=== PATIENT | male | born 1945 | race Caucasian/White ===

== ENCOUNTER 2018-01-16 21:21 | Inpatient (IN) | payer MEDICARE, OTHER ==
[~2018-01-16] VITALS: Ht 175.3 cm; Wt 127.3 kg
[2018-01-16] MEDS ORDERED: albuterol 2.5 MG/3 ML nebule CONTNEB PRN (22:05)
[2018-01-16 22:15] LABS: BASOPHILS # (AUTO) 0.1 X10'3 (0-0.2); BASOPHILS % (AUTO) 0.4 % (0-1); EOSINOPHILS # (AUTO) 0.4 X10'3 (0-0.9); EOSINOPHILS % (AUTO) 2.6 % (0-6); LYMPHOCYTES # (AUTO) 2.4 X10'3 (1.1-4.8); LYMPHOCYTES % (AUTO) 14.7 % (21-51); MEAN CORPUSCULAR HEMOGLOBIN 31.6 PG (27.0-31.0); MEAN CORPUSCULAR HGB CONC 34.2 % (33.0-36.5); MEAN CORPUSCULAR VOLUME 92.5 FL (78-98); MEAN PLATELET VOLUME 8.9 FL (7.4-10.4); MONOCYTES # (AUTO) 1.4 X10'3 (0-0.9); MONOCYTES % (AUTO) 8.6 % (2-12); NEUTROPHILS # (AUTO) 12.1 X10'3 (1.8-7.7); NEUTROPHILS % (AUTO) 73.7 % (42-75); PLATELET COUNT 238 X10'3 (140-440); RED BLOOD COUNT 5.08 X10'6 (4.70-6.10); RED CELL DISTRIBUTION WIDTH 13.6 % (11.5-14.5); WHITE BLOOD COUNT 16.4 X10'3 (4.5-11.0)
[2018-01-16] MEDS ORDERED: methylPREDNISolone sod succ 125mg/2ml vial IV ONE (22:15)
[2018-01-16 22:28] LABS: PARTIAL THROMBOPLASTIN TIME 28 SECONDS (22-32)
[2018-01-16 22:41] LABS: ALANINE AMINOTRANSFERASE 45 U/L (12-78); ALBUMIN 3.9 G/DL (3.4-5.0); ALKALINE PHOSPHATASE 74 IU/L (46-116); ANION GAP 8 (8-16); ASPARTATE AMINO TRANSFERASE 31 U/L (10-37); BILIRUBIN,TOTAL 0.5 MG/DL (0.1-1.0); BLOOD UREA NITROGEN 14 MG/DL (7-18); BUN/CREATININE RATIO 11.6 (5.4-32.0); CALCIUM 8.8 MG/DL (8.5-10.1); CHLORIDE 104 MMOL/L (99-107); CREATINE KINASE 294 U/L (39-308); CREATININE 1.21 MG/DL (0.60-1.10); GLUCOSE 115 MG/DL (70-104); POTASSIUM 4.1 MMOL/L (3.5-5.1); SODIUM 141 MMOL/L (135-145); TOTAL CARBON DIOXIDE 29.2 MMOL/L (24-32); TOTAL PROTEIN 7.7 G/DL (6.4-8.2); eGFR 59 ML/MIN
[2018-01-16] MEDS ORDERED: ALBU8HFA PO (23:03)
[2018-01-16 23:05] LABS: CLARITY,URINE Clear (Clear); COLOR,URINE YELLOW (Yellow); GLUCOSE, URINE NEGATIVE (Neg); KETONES,URINE NEGATIVE (Neg); NITRITES, URINE NEGATIVE (Neg); OCCULT BLOOD,URINE TRACE-INTACT (Neg); PROTEIN,URINE 30 mg/dl (Neg); UA COLLECTION TYPE CLN CATCH MIDSTREAM; UROBILINOGEN,URINE 0.2 E.U/dL (0.2-1.0)
[2018-01-16 23:06] LABS: LEUKOCYTE ESTERASE ,URINE NEGATIVE (Neg)
[2018-01-16 23:07] LABS: BACTERIA,URINE NONE SEEN /HPF (Neg); RBC,URINE NONE SEEN /HPF (0-2); SQUAMOUS EPITHELIAL CELL,UR NONE SEEN /LPF (FEW); WBC,URINE NONE SEEN /HPF (0-4)
[2018-01-16] MEDS ORDERED: acetaminophen/codeine 120mg/12mg per 5ml cup PO ONE (23:25)
[2018-01-16] MEDS ORDERED: furosemide 10 MG/1 ML 10ml inj IV ONE (23:35)
[2018-01-16] MEDS ORDERED: nitroGLYCERIN 1gm ointment UD TP ONE (23:35)
[2018-01-16] MEDS ORDERED: aspirin 81mg tab.chew PO ONE (23:35)
[2018-01-17] MEDS ORDERED: benzonatate 100mg capsule PO ONE (00:10)
[2018-01-17] MEDS ORDERED: magnesium hydroxide 30ml (MOM) UD suspension PO PRN (00:25)
[2018-01-17] MEDS ORDERED: acetaminophen 325mg tablet PO PRN (00:25)
[2018-01-17] MEDS ORDERED: ondansetron/PF 4mg/2ml inj IV PRN (00:25)
[2018-01-17] MEDS ORDERED: mag hydrox/Alum hydrox/simeth 30ml oral suspension PO PRN (00:25)
[2018-01-17] MEDS ORDERED: albuterol 2.5 MG/3 ML nebule NEB PRN ×2 (00:30→13:10)
[2018-01-17] MEDS: benzonatate 100mg capsule PO PRN (04:11)
[2018-01-17 04:30] VITALS: BP 149/69
[2018-01-17 07:43] VITALS: BP 159/69
[2018-01-17] MEDS: carVEDilol 3.125mg tablet PO SCH ×2 (07:52→21:05)
[2018-01-17] MEDS: heparin, porcine 5000 units/ml vial SQ SCH ×2 (07:53→21:19)
[2018-01-17 11:00] VITALS: BP 158/72
[2018-01-17] MEDS: methylPREDNISolone sod succ 125mg/2ml vial IV SCH ×4 (13:05→21:04)
[2018-01-17] MEDS: levoFLOXACIN-Levaquin 250mg/D5 50 ML IV SCH (13:53)
[2018-01-17] MEDS: furosemide 40mg/4ml inj IV SCH (13:53)
[2018-01-17 15:00] VITALS: BP 167/74
[2018-01-17 19:00] VITALS: BP 160/70
[2018-01-17] MEDS: albuterol 2.5 MG/3 ML nebule NEB SCH ×2 (19:45→23:00)
[2018-01-17 23:00] VITALS: BP 119/77
[2018-01-18] MEDS: methylPREDNISolone sod succ 125mg/2ml vial IV SCH ×2 (02:44→08:13)
[2018-01-18] MEDS: benzonatate 100mg capsule PO PRN (02:50)
[2018-01-18 05:23] LABS: BASOPHILS % (AUTO) 0.1 % (0-1); EOSINOPHILS # (AUTO) 0.1 X10'3 (0-0.9); EOSINOPHILS % (AUTO) 0.3 % (0-6); HEMOGLOBIN 15.3 g/dl (14.0-17.9); LYMPHOCYTES # (AUTO) 1.7 X10'3 (1.1-4.8); LYMPHOCYTES % (AUTO) 6.7 % (21-51); MEAN CORPUSCULAR HEMOGLOBIN 31.3 PG (27.0-31.0); MEAN CORPUSCULAR HGB CONC 33.2 % (33.0-36.5); MEAN CORPUSCULAR VOLUME 94.3 FL (78-98); MEAN PLATELET VOLUME 9.5 FL (7.4-10.4); MONOCYTES # (AUTO) 0.6 X10'3 (0-0.9); MONOCYTES % (AUTO) 2.4 % (2-12); NEUTROPHILS # (AUTO) 23.6 X10'3 (1.8-7.7); NEUTROPHILS % (AUTO) 90.5 % (42-75); PLATELET COUNT 256 X10'3 (140-440); RED BLOOD COUNT 4.88 X10'6 (4.70-6.10); RED CELL DISTRIBUTION WIDTH 13.6 % (11.5-14.5)
[2018-01-18 05:27] LABS: WHITE BLOOD COUNT 26.1 X10'3 (4.5-11.0)
[2018-01-18 05:36] LABS: ALANINE AMINOTRANSFERASE 39 U/L (12-78); ALBUMIN 3.4 G/DL (3.4-5.0); ALBUMIN/GLOBULIN RATIO 0.9 (1.1-1.5); ALKALINE PHOSPHATASE 59 IU/L (46-116); ANION GAP 6 (8-16); ASPARTATE AMINO TRANSFERASE 31 U/L (10-37); BILIRUBIN,TOTAL 0.5 MG/DL (0.1-1.0); BLOOD UREA NITROGEN 22 MG/DL (7-18); BUN/CREATININE RATIO 21.2 (5.4-32.0); CALCIUM 8.7 MG/DL (8.5-10.1); CHLORIDE 101 MMOL/L (99-107); CREATININE 1.04 MG/DL (0.60-1.10); GLUCOSE 158 MG/DL (70-104); SODIUM 136 MMOL/L (135-145); TOTAL CARBON DIOXIDE 29.3 MMOL/L (24-32); TOTAL PROTEIN 7.3 G/DL (6.4-8.2); eGFR 70 ML/MIN
[2018-01-18 06:00] VITALS: BP 154/66
[2018-01-18] MEDS ORDERED: aspirin 81mg tablet.DR PO SCH (08:00)
[2018-01-18] MEDS: furosemide 40mg/4ml inj IV SCH (08:13)
[2018-01-18] MEDS: levoFLOXACIN-Levaquin 250mg/D5 50 ML IV SCH (08:14)
[2018-01-18] MEDS: carVEDilol 3.125mg tablet PO SCH (08:14)
[2018-01-18] MEDS: heparin, porcine 5000 units/ml vial SQ SCH (08:14)
[2018-01-18] MEDS: albuterol 2.5 MG/3 ML nebule NEB SCH (08:17)
[2018-01-18 10:15] LABS: PLATELET ESTIMATE NORMAL; TOTAL CELLS COUNTED 100
[2018-01-18] MEDS ORDERED: FURO20TA4 PO (10:34)
[2018-01-18] MEDS ORDERED: COR3.125T PO (10:34)
[2018-01-18] MEDS ORDERED: ALBU2.5V7 NEB (10:34)
[2018-01-18] MEDS ORDERED: LEVO500T2 PO (10:34)
[2018-01-18] MEDS ORDERED: PRED10TA PO (10:34)
[2018-01-18] MEDS ORDERED: ASPI-1071 PO (10:34)
== END 2018-01-18 14:55 | disposition home health service (06) | DRG 189 ==
LOC: ER 21:22 → ED HOLD 01-17 00:23 → EDBEDREQ 01-17 03:36 → PCU 3S 01-17 03:45
PROVIDERS: ADMIT Internal Medicine; ATTEND Family Medicine
DX: J96.01 Acute respiratory failure with hypoxia (principal); I50.31 Acute diastolic (congestive) heart failure; J45.901 Unspecified asthma with (acute) exacerbation; N17.9 Acute kidney failure, unspecified; J70.5 Respiratory conditions due to smoke inhalation; I11.0 Hypertensive heart disease with heart failure; J20.9 Acute bronchitis, unspecified; Z88.5 Allergy status to narcotic agent
CPT/HCPCS: 36415; 71045; 80053; 81001; 82550; 83605; 83880; 84145; 85025; 85610; 85730; 87040; 87070; 93005; 93306; 94640; 94760; 96374; 96375; 99285; J1644; J1940; J1956; J2930; J7030